=== PATIENT | female | born 2005 | race Caucasian/White ===

== ENCOUNTER → 2025-04-14 | Outpatient (CLI) | payer OTHER ==
[2025-04-14 11:11] LABS: PLATELET COUNT, AUTOMATED 276 10^3/uL (150-450)
[2025-04-14 11:57] LABS: Trichomonas vaginalis (AMP) NOT DETECTED (NEGATIVE)
[2025-04-14 12:04] LABS: HIV 1&2 SCREEN NEGATIVE (NEGATIVE)
[2025-04-14 12:12] LABS: HEPATITIS C VIRUS ABY INDEX < 0.02 INDEX (<0.8)
[2025-04-14 12:21] LABS: GC DNA AMPLIFICATION NEGATIVE (NEGATIVE)
== END ==
LOC: M PLALAB 08:34
PROVIDERS: ATTEND Nurse Practitioner Family
DX: Z34.92 Encounter for supervision of normal pregnancy, unspecified, second trimester (principal)

== ENCOUNTER → 2025-05-02 | Outpatient (CLI) | payer OTHER | LOC: M RAD 10:41 | PROVIDERS: ATTEND Nurse Practitioner Family | DX: Z34.82 Encounter for supervision of other normal pregnancy, second trimester (principal); Z3A.18 18 weeks gestation of pregnancy ==

== ENCOUNTER → 2025-07-07 | Outpatient (CLI) | payer OTHER ==
[2025-07-07 15:28] LABS: PLATELET COUNT, AUTOMATED 314 10^3/uL (150-450)
[2025-07-07 15:56] LABS: HIV 1&2 SCREEN NEGATIVE (NEGATIVE)
[2025-07-07 16:04] LABS: HEPATITIS C VIRUS ABY INDEX < 0.02 INDEX (<0.8)
[2025-07-07 16:28] LABS: Trichomonas vaginalis (AMP) NOT DETECTED (NEGATIVE)
[2025-07-07 16:52] LABS: GC DNA AMPLIFICATION NEGATIVE (NEGATIVE)
== END ==
LOC: M PLALAB 12:08
PROVIDERS: ATTEND Nurse Practitioner Family
DX: Z34.82 Encounter for supervision of other normal pregnancy, second trimester (principal)

== ENCOUNTER → 2025-07-13 | Outpatient (CLI) | payer OTHER | LOC: M PLALAB 10:16 | PROVIDERS: ATTEND Nurse Practitioner Family | DX: Z34.82 Encounter for supervision of other normal pregnancy, second trimester (principal) ==